=== PATIENT | female | born 1935 | race Caucasian/White ===

== ENCOUNTER 2019-08-21 08:40 | Emergency (ER) | payer OTHER, MEDICARE ==
--- NOTE | 2019-08-21 09:57 | RAD REPORT ---
EXAM DESCRIPTION: RAD - Lumbar Spine 3 Views - 08/21/2019 9:51 am CLINICAL HISTORY: PAIN Radiculopathy COMPARISON: Lumbar Spine 3 Views dated 02/25/2019 FINDINGS: Mild wedge compression fracture is seen affecting the L4 vertebral body with estimated jabari tebral body height loss of 10%. This appears subacute in timeframe. Degenerative changes are present elsewhere throughout the lumbar spine with vacuum disc degeneration noted at L2-3. Mild degenerative anterolisthesis is seen of L4 on 5. IMPRESSION: Subacute mild wedge compression fracture affecting L4 vertebral body noted.
--- NOTE | 2019-08-21 10:39 | ER ---
Nurse's Notes [facility] Name: Argenis Rosenthal Age: 84 yrs Sex: Female : 1935 Arrival Date: 08/21/2019 Time: 08:43 Bed 5 Private MD: Tip Hernandez V Diagnosis: Low back pain;Other fracture of fourth lumbar vertebra-wedge fracture, 10% Presentation: 08/20 08:54 Chief complaint: Left low back pain after mechanical fall from standing 10 days ago. Pt hb stated "I was in the kitchen and saw a mouse, I jumped backwards and hit the counter with my back.". Coronavirus screen: Proceed with normal triage. Ebola Screen: No symptoms or risks identified at this time. Initial Sepsis Screen: Does the patient meet any 2 criteria? No. Patient's initial sepsis screen is negative. Does the patient have a suspected source of infection? No. Patient's initial sepsis screen is negative. Risk Assessment: Do you want to hurt yourself or someone else? Patient reports no desire to harm self or others. Onset of symptoms was August 21, 2019. 08:54 Method Of Arrival: Ambulatory hb 08:54 Acuity: KHAI 4 hb Triage Assessment: 08:56 General: Appears in no apparent distress. comfortable, Behavior is calm, cooperative, bp appropriate for age. Pain: Complains of pain in left lower back. EENT: No deficits noted. Neuro: No deficits noted. Cardiovascular: No deficits noted. Respiratory: No deficits noted. GI: No signs and/or symptoms were reported involving the gastrointestinal system. : No signs and/or symptoms were reported regarding the genitourinary system. Derm: No deficits noted. Musculoskeletal: Circulation, motion, and sensation intact. Range of motion: intact in all extremities. Historical: - Allergies: 08:56 No Known Allergies; hb - Immunization history:: Adult Immunizations up to date, Adult Immunizations up to date. - Social history:: Smoking status: Patient denies any tobacco usage or history of. Smoking status: Patient denies any tobacco usage or history of. Screenin:56 Abuse screen: Denies threats or abuse. Denies injuries from another. Nutritional bp screening: No deficits noted. Tuberculosis screening: No symptoms or risk factors identified. Fall Risk None identified. Assessment: 08:55 General: SEE TRIAGE NOTE. Pain: Complains of pain in back. Neuro: Level of bp Consciousness is awake, alert, obeys commands, Oriented to person, place, time, situation. 10:16 Reassessment: RAD STUDIES COMPLETED AND REVIEWED. DISPO PENDING. bp 11:24 Reassessment: PT D/C HOME VIA W/C WITH FAMILY, DX WITH 4TH LUMBAR WEDGE FX. bp Vital Signs: 08:54 BP 139 / 101; Pulse 89; Resp 16; Temp 97.8; Pulse Ox 100% ; Weight 86.18 kg; Height 5 hb ft. (152.40 cm); Pain 4/10; 08:57 BP 149 / 103; Pulse 79; Resp 16; Pulse Ox 97% ; bp 10:15 BP 152 / 74; Pulse 68; Resp 16; Pulse Ox 96% ; bp 11:24 BP 166 / 67; Pulse 62; Resp 16; Pulse Ox 96% ; bp 08:54 Body Mass Index 37.11 (86.18 kg, 152.40 cm) hb ED Course: 08:43 Patient arrived in ED. ag5 08:43 Tip Hernandez MD is Private Physician. ag5 08:52 Jose Angel Montoya FNP-C is [facility]. la1 08:52 Marcell Cade MD is Attending Physician. la1 08:55 Aries Rojas, ANTONIA is Primary Nurse. bp 08:56 Triage completed. hb 08:56 Arm band placed on. hb 08:56 Patient has correct armband on for positive identification. Bed in low position. Call bp light in reach. Side rails up X2. 09:47 Lumbar Spine (3 Views) XRAY In Process Unspecified. EDMS 11:25 No provider procedures requiring assistance completed. Patient did not have IV access bp during this emergency room visit. Administered Medications: No medications were administered Outcome: 10:38 Discharge ordered by MD. la1 11:04 Discharge ordered by MD. la1 11:25 Discharged to home via wheelchair, with family. bp 11:25 Condition: stable 11:25 Discharge instructions given to patient, Instructed on discharge instructions, follow up and referral plans. medication usage, Demonstrated understanding of instructions, follow-up care, medications, Prescriptions given X 1. 11:26 Patient left the ED. bp Signatures: Dispatcher [employer] EDMS Jose Angel Montoya FNP-C CLIENT SOLUTIONS DIRECTOR-Cla1 Chelsea Dial, RN RN hb Aries Rojas, RN RN bp Ericka Shrestha ag5
--- NOTE | 2019-08-21 10:39 | EDPHYS ---
Physician Documentation [facility] Name: Argenis Rosenthal Age: 84 yrs Sex: Female : 1935 Arrival Date: 08/21/2019 Time: 08:43 Bed 5 Private MD: Tip Hernandez V ED Physician Marcell Cade HPI: 08/20 09:23 This 84 yrs old Female presents to ER via Ambulatory with complaints of Back la1 Pain. 09:23 The patient presents with pain that is acute. The symptoms are located in the low back. la1 Onset: The symptoms/episode began/occurred 10 day(s) ago. The pain does not radiate. Associated signs and symptoms: Pertinent negatives: constipation, dysuria, fever, headache, hematuria, incontinence, nausea, numbness, tingling, urinary retention. The problem was sustained was startled backwards in to edge of counter. No fall. Modifying factors: The patient symptoms are alleviated by rest, the patient symptoms are aggravated by any movement, bending. Severity of symptoms: At their worst the symptoms were mild. The patient has not experienced similar symptoms in the past. Historical: - Allergies: 08:56 No Known Allergies; hb - Immunization history:: Adult Immunizations up to date, Adult Immunizations up to date. - Social history:: Smoking status: Patient denies any tobacco usage or history of. Smoking status: Patient denies any tobacco usage or history of. ROS: 09:24 Constitutional: Negative for fever, chills, and weight loss, Eyes: Negative for injury, la1 pain, redness, and discharge, ENT: Negative for injury, pain, and discharge, Neck: Negative for injury, pain, and swelling, Cardiovascular: Negative for chest pain, palpitations, and edema, Respiratory: Negative for shortness of breath, cough, wheezing, and pleuritic chest pain, Abdomen/GI: Negative for abdominal pain, nausea, vomiting, diarrhea, and constipation. 09:24 Skin: Negative for injury, rash, and discoloration. 09:24 Back: Positive for pain with movement, Negative for decreased range of motion, radiated pain, acute changes. Exam: 09:24 Constitutional: This is a well developed, well nourished patient who is awake, alert, la1 and in no acute distress. Head/Face: Normocephalic, atraumatic. Chest/axilla: Normal chest wall appearance and motion. Nontender with no deformity. No lesions are appreciated. Cardiovascular: Regular rate and rhythm with a normal S1 and S2. No gallops, murmurs, or rubs. Normal PMI, no JVD. No pulse deficits. Respiratory: Lungs have equal breath sounds bilaterally, clear to auscultation Abdomen/GI: Soft, non-tender, with normal bowel sounds. No distension or tympany. MS/ Extremity: Pulses equal, no cyanosis. Neurovascular intact. Full, normal range of motion. 09:24 Back: ROM is painful, with all movement, CVA tenderness, is absent, vertebral tenderness, is not appreciated. 10:39 Neuro: Orientation: is normal, Memory: is normal, Cranial nerves: grossly normal, la1 Cerebellar function: is grossly normal, Sensation: is normal, no obvious gross deficits, no acute changes, Gait: is steady. Vital Signs: 08:54 BP 139 / 101; Pulse 89; Resp 16; Temp 97.8; Pulse Ox 100% ; Weight 86.18 kg; Height 5 hb ft. (152.40 cm); Pain 4/10; 08:57 BP 149 / 103; Pulse 79; Resp 16; Pulse Ox 97% ; bp 10:15 BP 152 / 74; Pulse 68; Resp 16; Pulse Ox 96% ; bp 11:24 BP 166 / 67; Pulse 62; Resp 16; Pulse Ox 96% ; bp 08:54 Body Mass Index 37.11 (86.18 kg, 152.40 cm) hb MDM: 09:14 Patient medically screened. la1 10:36 Data reviewed: vital signs, nurses notes, radiologic studies, I have discussed the la1 patient's presentation/case with the attending Emergency Department Physician; and as a result, I will discharge patient. Data interpreted: Pulse oximetry: on room air is 96 %. Interpretation: normal. Counseling: I had a detailed discussion with the patient and/or guardian regarding: the historical points, exam findings, and any diagnostic results supporting the discharge/admit diagnosis, radiology results, the need for outpatient follow up, a family practitioner, to return to the emergency department if symptoms worsen or persist or if there are any questions or concerns that arise at home. 10:59 Special discussion: Based on the patient's Hx, exam, and Dx evaluation, there is no la1 indication for emergent surgery or inpatient Tx. It is understood by the patient/guardian that if the Sx's persist or worsen they need to return immediately for re-evaluation. ED course: 10% wedge fracture of the fourth vertebrae, No weakness to extremities, no saddle anesthesia, no sensory loss, no bowel incontinence, pt reports some bladder incontinence that she has had in the past. Pt reports the incontinence happened when she took tramadol. Pt able to FU with PCP. discussed need for back brace, rest, pain meds as needed. . 08/20 09:14 Order name: Lumbar Spine (3 Views) XRAY; Complete Time: 10:00 la1 Administered Medications: No medications were administered Disposition: 11:32 Co-signature as Attending Physician, Marcell Cdae MD I agree with the assessment and kdr plan of care. Disposition: 08/21/19 11:04 Discharged to Home. Impression: Low back pain, Other fracture of fourth lumbar vertebra - wedge fracture, 10% . - Condition is Stable. - Discharge Instructions: Back Pain, Adult, Fall Prevention in the Home, Lumbar Fracture, Back Injury Prevention. - Prescriptions for Tylenol- Codeine #3 300-30 mg Oral Tablet - take 2 tablets by ORAL route every 6 hours As needed; 20 tablet. - Medication Reconciliation Form, Thank You Letter, Prescription Opioid Use form. - Follow up: Private Physician; When: 2 - 3 days; Reason: Recheck today's complaints, Re-evaluation by your physician. - Problem is new. - Symptoms have improved. - Notes: Please be very careful when you take the tylenol with codeine as it can greatly increase your risk of falling. Please return to the ER right away with any new or worsening symptoms including numbness, tingling, weakness, incontinence. Hope you feel better soon! Signatures: Dispatcher [employer] EDMS Marcell Cade MD MD kdr Attema, Lee, TRAVELING PLANT OPERATOR-C TRAVELING PLANT OPERATOR-Cla1 Chelsea Dial, ANTONIA RN Aries Mondragon, ANTONIA RN bp Corrections: (The following items were deleted from the chart) 10:46 10:38 08/21/2019 10:38 Discharged to Home. Impression: Low back pain; Wedge compression la1 fracture of fourth lumbar vertebra - Mild. Condition is Stable. Forms are Medication Reconciliation Form, Thank You Letter, Antibiotic Education, Prescription Opioid Use. Follow up: Private Physician; When: 2 - 3 days; Reason: Recheck today's complaints, Re-evaluation by your physician. Follow up: Emergency Department; When: As needed. Problem is new. Symptoms have improved. la1 11:00 10:55 Spine Lumbar Wo Con+CT.RAD.BRZ ordered. [facility] EDKY 11:26 11:04 08/21/2019 11:04 Discharged to Home. Impression: Low back pain; Other fracture of bp fourth lumbar vertebra - wedge fracture, 10% . Condition is Stable. Forms are Medication Reconciliation Form, Thank You Letter, Antibiotic Education, Prescription Opioid Use. Follow up: Private Physician; When: 2 - 3 days; Reason: Recheck today's complaints, Re-evaluation by your physician. Problem is new. Symptoms have improved. la1
[2019-08-21 11:46] VITALS: TEMP 97.8
[2019-08-21 11:52] VITALS: BP 166/67; O2SAT 96
== END 2019-08-21 11:26 | disposition home or self-care (01) ==
LOC: ER 08:40
DX: S32.040A Wedge compression fracture of fourth lumbar vertebra, initial encounter for closed fracture (principal)
CPT/HCPCS: 72100; 99283

== ENCOUNTER 2020-08-02 10:37 | Emergency (ER) | payer OTHER, MEDICARE ==
[2020-08-02] MEDS ORDERED: TETANUS & DIPHTHERIA TOX,ADULT 0.5 ML VIAL ONE (11:13)
--- NOTE | 2020-08-02 12:42 | EDPHYS ---
Physician Documentation [facility] Name: Argenis Rosenthal Age: 85 yrs Sex: Female : 1935 Arrival Date: 08/02/2020 Time: 10:37 Bed 14 Private MD: ED Physician Maikel Hare HPI: 08/02 10:48 This 85 yrs old Female presents to ER via Ambulatory with complaints of jmm Laceration To Leg. 10:48 Onset: The symptoms/episode began/occurred acutely, just prior to arrival. Associated jmm signs and symptoms: Pertinent negatives: dizziness, heavy bleeding, loss of consciousness, numbness distal to injury, suspected foreign body. The patient has experienced a previous episode. This is an 85 year old female with a history of htn, asthma, UC that presents to the ED with complaints of laceration to the right lower leg. This occurred while stepping into a ellison. Patient states she was cut by a trimmed ellison. Patient unsure of tetanus immunization. . Historical: - Allergies: 10:39 Beta-Blockers (Beta-Adrenergic Blocking Agts); aa5 - PMHx: 10:39 Hypertension; Asthma; Ulcerative Colitis; aa5 - Immunization history:: Last tetanus immunization: unknown. - Social history:: Smoking status: Patient denies any tobacco usage or history of. ROS: 10:48 Constitutional: Negative for fever, chills, and weight loss, Cardiovascular: Negative jmm for chest pain, palpitations, and edema, Respiratory: Negative for shortness of breath, cough, wheezing, and pleuritic chest pain. 10:48 MS/extremity: Positive for injury or acute deformity, laceration. 10:48 All other systems are negative. Exam: 10:48 Constitutional: This is a well developed, well nourished patient who is awake, alert, jmm and in no acute distress. Head/Face: atraumatic. Eyes: EOMI, no conjunctival erythema appreciated ENT: Moist Mucus Membranes Neck: Trachea midline, Supple Chest/axilla: Normal chest wall appearance and motion. Cardiovascular: Regular rate and rhythm. No edema appreciated Respiratory: Normal respirations, no respiratory distress appreciated Abdomen/GI: Non distended, soft Back: Normal ROM 10:48 Skin: 10 cm laceration noted to the right lower leg, no active bleeding. 10:48 Neuro: Orientation: is normal, Mentation: is normal, Memory: is normal. 10:48 Psych: Behavior/mood is pleasant, cooperative. Vital Signs: 10:39 BP 153 / 100; Pulse 89; Resp 16 S; Temp 98.4(O); Pulse Ox 97% on R/A; Weight 83.91 kg aa5 (R); Height 4 ft. 11 in. (149.86 cm) (R); Pain 3/10; 12:10 BP 164 / 76; Pulse 75; Resp 17; Pulse Ox 95% ; jl7 10:39 Body Mass Index 37.37 (83.91 kg, 149.86 cm) aa5 Laceration: 12:39 Wound Repair of 10cm ( 3.9in ) subcutaneous laceration to right leg. Distal jmm neuro/vascular/tendon intact. Anesthesia: Local anesthetic administered with 10 mls of 0.5% marcaine. Wound prep: Extensive cleansing with betadine by nm, Copious irrigation. Skin closed with 18 4-0 Prolene using simple sutures and sterile technique. Patient tolerated well. MDM: 10:48 Patient medically screened. [facility] 12:39 Data reviewed: vital signs, nurses notes. Counseling: I had a detailed discussion with elena the patient and/or guardian regarding: the historical points, exam findings, and any diagnostic results supporting the discharge/admit diagnosis, the need for outpatient follow up, to return to the emergency department if symptoms worsen or persist or if there are any questions or concerns that arise at home. ED course: Patient is alert and non toxic in appearance in the ED. Wound was copiously irrigated. Patient is advised to follow up with pcp and otherwise given strict return precautions. patient understood and agrees with the plan of care. . 08/02 11:11 Order name: Dressing - Wound; Complete Time: 12:02 7 08/02 11:11 Order name: Gloves, Sterile; Complete Time: 11:11 7 08/02 11:11 Order name: Setup Suture Tray; Complete Time: 11:11 Administered Medications: 11:10 Drug: Marcaine (bupivacaine) (0.5 %) 20 ml {Note: administered by ERP.} Volume: 10 ml; jl7 Route: Infiltration; 12:02 Drug: Tetanus-Diphtheria Toxoid Adult 0.5 ml {School Commissioner: [employer]. Exp: jl7 10/09/2021. Lot #: [id number]. } Route: IM; Site: right deltoid; Disposition: 18:48 Co-signature as Attending Physician, Maikel Hare MD. ma2 Disposition: 08/02/20 12:42 Discharged to Home. Impression: Cutaneous Laceration of the Lower Leg. - Condition is Stable. - Discharge Instructions: Laceration Care, Adult. - Prescriptions for Augmentin 875- 125 mg Oral Tablet - take 1 tablet by ORAL route every 12 hours for 10 days; 20 tablet. - Medication Reconciliation Form, Thank You Letter, Antibiotic Education, Prescription Opioid Use form. - Follow up: Private Physician; When: 7 - 10 days; Reason: Recheck today's complaints, Continuance of care, Staple/Suture removal, Re-evaluation by your physician. Signatures: Deejay Valdez PA PA jmm Calderon, Audri, RN RN aa5 Kathleen Torrez RN RN jl7 Maikel Hare MD MD ma2 Corrections: (The following items were deleted from the chart) 12:49 12:42 08/02/2020 12:42 Discharged to Home. Impression: Cutaneous Laceration of the jl7 Lower Leg. Condition is Stable. Forms are Medication Reconciliation Form, Thank You Letter, Antibiotic Education, Prescription Opioid Use. Follow up: Private Physician; When: 7 - 10 days; Reason: Recheck today's complaints, Continuance of care, Staple/Suture removal, Re-evaluation by your physician. elena
--- NOTE | 2020-08-02 12:42 | ER ---
Nurse's Notes [facility] Name: Argenis Rosenthal Age: 85 yrs Sex: Female : 1935 Arrival Date: 08/02/2020 Time: 10:37 Bed 14 Private MD: Diagnosis: Cutaneous Laceration of the Lower Leg Presentation: 08/02 10:39 Chief complaint: Patient states: "I was doing some yard work and the bottom of a ellison aa5 cut my leg". Laceration noted to right lower leg, mild bleeding noted at this time, dressing applied with gauze and tape. 10:39 Acuity: KHAI 3 aa5 10:39 Risk Assessment: Do you want to hurt yourself or someone else? Patient reports no aa5 desire to harm self or others. 10:39 Coronavirus screen: At this time, the client does not indicate any symptoms associated aa5 with coronavirus-19. Ebola Screen: Patient negative for fever greater than or equal to 101.5 degrees Fahrenheit, and additional compatible Ebola Virus Disease symptoms. Complicating Factors: There are no complicating factors for this patient. Initial Sepsis Screen: Does the patient meet any 2 criteria? No. Patient's initial sepsis screen is negative. Does the patient have a suspected source of infection? No. Patient's initial sepsis screen is negative. Onset of symptoms was August 02, 2020. 10:39 Method Of Arrival: Ambulatory aa5 Historical: - Allergies: 10:39 Beta-Blockers (Beta-Adrenergic Blocking Agts); aa5 - PMHx: 10:39 Hypertension; Asthma; Ulcerative Colitis; aa5 - Immunization history:: Last tetanus immunization: unknown. - Social history:: Smoking status: Patient denies any tobacco usage or history of. Screenin:00 Abuse screen: Denies threats or abuse. Denies injuries from another. Nutritional jl7 screening: No deficits noted. Tuberculosis screening: No symptoms or risk factors identified. Fall Risk None identified. Assessment: 11:00 General: Appears in no apparent distress. uncomfortable, Behavior is calm, cooperative, jl7 appropriate for age. Pain: Complains of pain in lateral aspect of right calf Pain currently is 3 out of 10 on a pain scale. Neuro: Level of Consciousness is awake, alert, obeys commands, Oriented to person, place, time, situation. Cardiovascular: Patient's skin is warm and dry. Respiratory: Airway is patent Respiratory effort is even, unlabored, Respiratory pattern is regular, symmetrical. Derm: Skin is pink, warm \\T\\ dry. Musculoskeletal: Range of motion: intact in all extremities. Injury Description: Laceration sustained to lateral aspect of right calf is jagged, 2.6 to 7.5 cm long, was sustained less than 30 minutes ago. is bleeding a small amount. Vital Signs: 10:39 BP 153 / 100; Pulse 89; Resp 16 S; Temp 98.4(O); Pulse Ox 97% on R/A; Weight 83.91 kg aa5 (R); Height 4 ft. 11 in. (149.86 cm) (R); Pain 3/10; 12:10 BP 164 / 76; Pulse 75; Resp 17; Pulse Ox 95% ; jl7 10:39 Body Mass Index 37.37 (83.91 kg, 149.86 cm) aa5 ED Course: 10:37 Patient arrived in ED. as 10:39 Arm band placed on. aa5 10:42 Deejay Valdez PA is PHCP. [facility] 10:42 Maikel Hare MD is Attending Physician. [facility] 10:52 Triage completed. aa 10:54 Kathleen Torrez RN is Primary Nurse. jl7 11:00 Patient has correct armband on for positive identification. Bed in low position. Call jl7 light in reach. Side rails up X 1. Pulse ox on. NIBP on. 11:28 Assist provider with laceration repair on lateral aspect of right calf that was between jl7 2.6 to 7.5 cm using sutures. Set up tray. Performed by Deejay PEDERSON Dressed with Neosporin, Nonstick gauze and foam tape Patient tolerated well. 12:49 Patient did not have IV access during this emergency room visit. jl7 Administered Medications: 11:10 Drug: Marcaine (bupivacaine) (0.5 %) 20 ml {Note: administered by ERP.} Volume: 10 ml; jl7 Route: Infiltration; 12:02 Drug: Tetanus-Diphtheria Toxoid Adult 0.5 ml {[employer] Assembly Line Worker: [employer]. Exp: jl7 10/09/2021. Lot #: [id number]. } Route: IM; Site: right deltoid; Outcome: 12:42 Discharge ordered by . elena 12:49 Discharged to home ambulatory. jl7 12:49 Condition: stable 12:49 Discharge instructions given to patient, Instructed on discharge instructions, follow up and referral plans. medication usage, Demonstrated understanding of instructions, follow-up care, medications, Prescriptions given X 1. 12:49 Patient left the ED. jl7 Signatures: Deejay Valdez PA PA jmm Martinez, Amelia as Calderon, Audri, RN RN aa5 Kathleen Torrez RN RN jl7
[2020-08-02 12:54] VITALS: TEMP 98.4
[2020-08-02 12:55] VITALS: BP 164/76; O2SAT 95
== END 2020-08-02 12:49 | disposition home or self-care (01) ==
LOC: ER 10:37
PROC: 0JQN0ZZ Repair Right Lower Leg Subcutaneous Tissue and Fascia, Open Approach (ICD-10-PCS; principal; 2020-08-02)
DX: S81.811A Laceration without foreign body, right lower leg, initial encounter (principal); W26.8XXA Contact with other sharp object(s), not elsewhere classified, initial encounter; Y93.01 Activity, walking, marching and hiking; Y92.89 Other specified places as the place of occurrence of the external cause; Z23 Encounter for immunization; Z88.8 Allergy status to other drugs, medicaments and biological substances; I10 Essential (primary) hypertension
CPT/HCPCS: 90471; 90714; 99284

== ENCOUNTER 2022-07-09 14:13 | Emergency (ER) | payer OTHER ==
--- NOTE | 2022-07-09 15:24 | RAD REPORT ---
EXAM DESCRIPTION: CT - Chest For Pe Angio - 07/09/2022 3:00 pm CLINICAL HISTORY: sob COMPARISON: None. TECHNIQUE: Dynamically enhanced axial 3 mm thick images of the chest were obtained during administra tion of 90 mL Isovue 370 IV contrast. Coronal and oblique reconstruction images were generated and re viewed. Exam utilizes a protocol for optimal evaluation of pulmonary arterial tree. Maximum intensity projections 3D imaging was utilized All CT scans are performed using dose optimization technique as appropriate and may include automated exposure control or mA/KV adjustment according to patient size. FINDINGS: A pulmonary embolus is not seen. A thoracic aortic aneurysm is not noted. A pleural effusion is not seen. A pericardial effusion is not seen. A lung consolidation is not present. Chronic elevation left hemidiaphragm. Left adrenal adenoma Heart is moderately to markedly enlarged. IMPRESSION: Negative for a pulmonary embolism.
--- NOTE | 2022-07-09 16:02 | RAD REPORT ---
EXAM DESCRIPTION: USExtrem Venous W Compress Bil07/09/2022 3:21 pm CLINICAL HISTORY: Leg pain COMPARISON: 2014 FINDINGS: The common femoral, superficial femoral, greater saphenous, popliteal and posterior tibial veins bilaterally are compressible and demonstrate augmentation. Doppler demonstrates good flow. Grayscale, color and spectral analysis performed on all vessels IMPRESSION: No evidence of deep venous thrombosis involving either lower extremity.
--- NOTE | 2022-07-09 16:10 | EDPHYS ---
Physician Documentation [facility] Name: Argenis Rosenthal Age: 87 yrs Sex: Female : 1935 Arrival Date: 07/09/2022 Time: 14:15 Bed DIS5 Private MD: ED Physician Fabiano Banks HPI: 07/09 15:37 This 87 yrs old Female presents to ER via Unassigned with complaints of Abnormal Lab rt Results. 15:37 Patient presents to the ED from a primary care provider for an elevated D-dimer over rt 1000. The patient was reportedly short of breath. Patient is no history of CHF, diuretics were given at the PCPs office. Patient reports mild shortness of breath at this time, denies lower extremity swelling to me. Denies chest pain. Symptoms are moderate severity, no other aggravating or elevating factors.. Historical: - Allergies: 16:50 Beta-Blockers (Beta-Adrenergic Blocking Agts); iw - PMHx: 16:50 Asthma; Hypertension; ulcerative colitis; iw - Family history:: not pertinent. ROS: 15:37 Constitutional: Negative for fever, chills, and weight loss, Eyes: Negative for injury, rt pain, redness, and discharge, Cardiovascular: Negative for chest pain, palpitations, and edema, Abdomen/GI: Negative for abdominal pain, nausea, vomiting, diarrhea, and constipation, MS/Extremity: Negative for injury and deformity, Skin: Negative for injury, rash, and discoloration, Neuro: Negative for headache, weakness, numbness, tingling, and seizure, Psych: Negative for depression, anxiety, suicide ideation, homicidal ideation, and hallucinations. 15:37 Respiratory: Positive for shortness of breath, Negative for cough. Exam: 15:37 Constitutional: This is a well developed, well nourished patient who is awake, alert, rt and in no acute distress. Head/Face: Normocephalic, atraumatic. Chest/axilla: Normal chest wall appearance and motion. Nontender with no deformity. No lesions are appreciated. Cardiovascular: Regular rate and rhythm with a normal S1 and S2. No gallops, murmurs, or rubs. Normal PMI, no JVD. No pulse deficits. Respiratory: Lungs have equal breath sounds bilaterally, clear to auscultation and percussion. No rales, rhonchi or wheezes noted. No increased work of breathing, no retractions or nasal flaring. Abdomen/GI: Soft, non-tender, with normal bowel sounds. No distension or tympany. No guarding or rebound. No evidence of tenderness throughout. Skin: Warm, dry with normal turgor. Normal color with no rashes, no lesions, and no evidence of cellulitis. MS/ Extremity: Pulses equal, no cyanosis. Neurovascular intact. Full, normal range of motion. Neuro: Awake and alert, GCS 15, oriented to person, place, time, and situation. Cranial nerves II-XII grossly intact. Motor strength 5/5 in all extremities. Sensory grossly intact. Cerebellar exam normal. Normal gait. Psych: Awake, alert, with orientation to person, place and time. Behavior, mood, and affect are within normal limits. MDM: 14:26 Patient medically screened. rt 16:10 Differential diagnosis: DVT, CHF, pulmonary embolism. Data reviewed: vital signs, rt nurses notes, lab test result(s), radiologic studies. Management of patient was discussed with the following: Primary Care Provider: Discussed with patient's PCP plan of action, plan to send patient home, PCP already prescribed diuretics. Patient with positive D-dimer, negative troponin in the outpatient setting. Does not require further work-up in the ED. Test considered but Not performed: Labs: Patient had labs performed in the outpatient setting, repeat laboratory testing is not needed.. External Records Reviewed: Outpatient labs: Reviewed outpatient labs revealing elevated D-dimer, BNP, otherwise unremarkable.. Care significantly affected by the following chronic conditions: Congestive Heart Failure. Counseling: I had a detailed discussion with the patient and/or guardian regarding: the historical points, exam findings, and any diagnostic results supporting the discharge/admit diagnosis, radiology results, the need for outpatient follow up, to return to the emergency department if symptoms worsen or persist or if there are any questions or concerns that arise at home. 07/09 14:26 Order name: CT Chest For PE Angio rt 07/09 14:26 Order name: US Extremity Venous W Compression Juanpablo rt 07/09 15:24 Order name: CT; Complete Time: 15:32 EDMS 07/09 16:02 Order name: US; Complete Time: 16:07 EDMS Administered Medications: No medications were administered Disposition Summary: 07/09/22 16:10 Discharge Ordered Location: Home rt Problem: new rt Symptoms: have improved rt Condition: Stable rt Diagnosis - Dyspnea rt Followup: rt - With: Tip Hernandez MD - When: 2 - 3 days - Reason: Discharge Instructions: - Discharge Summary Sheet rt - Shortness of Breath, Adult rt Forms: - Medication Reconciliation Form rt - Thank You Letter rt - Antibiotic Education rt - Prescription Opioid Use rt Signatures: Dispatcher [employer] Jessica Perea, ANTONIA RN iw Fabiano Banks MD MD rt
--- NOTE | 2022-07-09 16:55 | ER ---
Nurse's Notes [facility] Name: Argenis Rosenthal Age: 87 yrs Sex: Female : 1935 Arrival Date: 07/09/2022 Time: 14:15 Bed DIS5 Private MD: Diagnosis: Dyspnea Presentation: 07/09 16:49 Chief complaint: Spouse and/or significant other states: came in for elevated ddimer iw and SOB. Coronavirus screen: Client presents with at least one sign or symptom that may indicate coronavirus-19. Ebola Screen: Patient negative for fever greater than or equal to 101.5 degrees Fahrenheit, and additional compatible Ebola Virus Disease symptoms Patient denies exposure to infectious person. Patient denies travel to an Ebola-affected area in the 21 days before illness onset. No symptoms or risks identified at this time. Initial Sepsis Screen: Does the patient meet any 2 criteria? No. Patient's initial sepsis screen is negative. Does the patient have a suspected source of infection? No. Patient's initial sepsis screen is negative. Risk Assessment: Do you want to hurt yourself or someone else? Patient reports no desire to harm self or others. Onset of symptoms was July 09, 2022. 16:49 Method Of Arrival: Ambulatory iw 16:49 Acuity: KHAI 3 iw Historical: - Allergies: 16:50 Beta-Blockers (Beta-Adrenergic Blocking Agts); iw - PMHx: 16:50 Asthma; Hypertension; ulcerative colitis; iw - Family history:: not pertinent. ED Course: 14:15 Patient arrived in ED. rg4 14:17 Fabiano Banks MD is Attending Physician. rt 16:09 Tip Hernandez MD is Referral Physician. rt 16:50 Triage completed. iw 16:54 Jessica Norris RN is Primary Nurse. iw Administered Medications: No medications were administered Outcome: 16:10 Discharge ordered by . rt 16:54 Patient left the ED. iw Signatures: Jessica Norris RN RN iw Asya Buenrostro rg4 Fabiano Banks MD MD rt
== END 2022-07-09 16:54 | disposition home or self-care (01) ==
LOC: ER 14:13
DX: R06.00 Dyspnea, unspecified (principal); I10 Essential (primary) hypertension; J45.909 Unspecified asthma, uncomplicated; Z88.8 Allergy status to other drugs, medicaments and biological substances
CPT/HCPCS: 71275; 93970; 99281; Q9967

== ENCOUNTER 2023-08-01 09:30 | Emergency (ER) | payer OTHER ==
[2023-08-01] MEDS ORDERED: TDAP (DIPHTH,PERTUSS(ACELL),TET VAC) 0.5 ML VIAL IMVAC ONE (09:43)
[2023-08-01] MEDS ORDERED: ONDANSETRON 4 MG (ODT) TAB ONE (10:00)
--- NOTE | 2023-08-01 10:14 | RAD REPORT ---
EXAM DESCRIPTION: CT - [id number] - 08/01/2023 10:06 am CLINICAL HISTORY: Trauma, head and neck injury. PAIN COMPARISON: <Comparisons> TECHNIQUE: Axial 5 mm thick images of the head were obtained. Axial 2 mm thick images of the cervical spine were obtained with sagittal and coronal reconstruction images generated and reviewed. All CT scans are performed using dose optimization technique as appropriate and may include automated exposure control or mA/KV adjustment according to patient size. FINDINGS: CT HEAD WITHOUT CONTRAST: No acute hemorrhage, hydrocephalus or extra-axial collection is identified.Mild generalized brain atr ophy is present with mild periventricular and deep white matter chronic microvascular ischemic change s.No areas of brain edema or midline shift. The paranasal sinuses and mastoids are clear.The calvarium is intact. Moderate right posterior scalp hematoma. CT CERVICAL SPINE WITHOUT CONTRAST: No fracture or subluxation.Moderate lower cervical degenerative changes.No prevertebral soft tissues swelling is identified. IMPRESSION: No acute intracranial or cervical spine findings. Moderate lower cervical degenerative changes.
--- NOTE | 2023-08-01 10:19 | ER ---
Nurse's Notes [facility] Name: Argenis Rosenthal Age: 88 yrs Sex: Female : 1935 Arrival Date: 08/01/2023 Time: 09:30 Bed 19 Private MD: Diagnosis: Fall on same level, unspecified;Laceration without foreign body of unspecified part of head-hematoma Presentation: 07/31 09:32 Chief complaint: EMS states: "Was going up a step, lost her balance and fell backwards rs5 and hit the back of her head. No LOC, is not on blood thinners and is complaining of nausea". Coronavirus screen: At this time, the client does not indicate any symptoms associated with coronavirus-19. Ebola Screen: No symptoms or risks identified at this time. Initial Sepsis Screen: Does the patient meet any 2 criteria? No. Patient's initial sepsis screen is negative. Does the patient have a suspected source of infection? No. Patient's initial sepsis screen is negative. Risk Assessment: Do you want to hurt yourself or someone else? Patient reports no desire to harm self or others. Onset of symptoms was July 28, 2023. 09:32 Method Of Arrival: EMS: [facility] rs5 09:32 Acuity: KHAI 3 rs5 Triage Assessment: 09:37 General: Appears in no apparent distress. comfortable, Behavior is calm, cooperative. rs5 Pain: Denies pain. Historical: - Allergies: 09:37 Beta-Blockers (Beta-Adrenergic Blocking Agts); rs5 - PMHx: 09:37 Hypertension; Asthma; ulcerative colitis; rs5 - PSHx: 09:37 None; rs5 - Immunization history:: Adult Immunizations up to date. - Social history:: Smoking status: Patient denies any tobacco usage or history of. - Family history:: not pertinent. Screenin:35 [facility] ED Fall Risk Assessment (Adult) History of falling in the last 3 months, rs5 including since admission No falls in past 3 months (0 pts) Confusion or Disorientation No (0 pts) Intoxicated or Sedated No (0 pts) Impaired Gait No (0 pts) Mobility Assist Device Used No (0 pt) Altered Elimination No (0 pt) Score/Fall Risk Level 0 - 2 = Low Risk Oriented to surroundings, Maintained a safe environment. 09:35 Abuse screen: Denies threats or abuse. Nutritional screening: No deficits noted. rs5 Tuberculosis screening: No symptoms or risk factors identified. Assessment: 09:35 General: Appears in no apparent distress. comfortable, Behavior is calm, cooperative. rs5 Pain: Denies pain. Neuro: Level of Consciousness is awake, alert, obeys commands, Oriented to person, place, time, situation, Tractor Operator Helper are equal bilaterally Speech is normal, Facial symmetry appears normal, Pupils are PERRLA, Intact. 09:35 Cardiovascular: Rhythm is regular. Respiratory: Airway is patent Respiratory effort is rs5 even, unlabored, Respiratory pattern is regular, symmetrical. GI: Abdomen is round non-distended, Abd is soft and non tender X 4 quads. : No signs and/or symptoms were reported regarding the genitourinary system. EENT: No signs and/or symptoms were reported regarding the EENT system. Derm: Skin is intact, Skin is pink, warm \\T\\ dry. Musculoskeletal: Range of motion: intact in all extremities. 10:50 Reassessment: Patient and/or family updated on plan of care and expected duration. Pain rs5 level reassessed. Patient is alert, oriented x 3, equal unlabored respirations, skin warm/dry/pink. Patient denies pain at this time. Patient states feeling better. Vital Signs: 09:32 BP 143 / 93; Pulse 70; Resp 18; Pulse Ox 99% on R/A; rs5 09:32 Temp 97.8(O); rs5 09:50 BP 140 / 91; Pulse 74; Resp 18; Pulse Ox 99% on R/A; rs5 10:40 BP 137 / 88; Pulse 71; Resp 17; Pulse Ox 99% on R/A; rs5 [place] Coma Score: 10:17 Eye Response: spontaneous(4). Motor Response: obeys commands(6). Verbal Response: fatuma oriented(5). Total: 15. ED Course: 09:32 Patient arrived in ED. rs5 09:35 Triage completed. rs5 09:35 Arm band placed on right wrist. rs5 09:35 Patient has correct armband on for positive identification. Placed in gown. Bed in low rs5 position. Call light in reach. Side rails up X2. 09:35 No provider procedures requiring assistance completed. rs5 09:37 Larry Nair MD is Attending Physician. [facility] 10:08 CT Head C Spine In Process Unspecified. EDCT 10:15 Laz Crawley, RN is Primary Nurse. rs5 10:55 Patient did not have IV access during this emergency room visit. rs5 Administered Medications: 10:03 Not Given (Patient Objection): tetanus toxoid,adsorbed0.5 ml IM once; Provide Vaccine rs5 Information Statement (VIS). 10:15 Drug: Ondansetron Oral Disintegrating Tablet Oral Disintegrating Tablet 4 mg PO once rs5 Route: PO; 10:16 Follow up: Response: No adverse reaction rs5 Medication: 09:40 VIS not applicable for this client. rs5 Outcome: 10:19 Discharge ordered by . [facility] 10:55 Discharged to home ambulatory, rs5 10:55 Condition: stable rs5 10:55 Discharge instructions given to patient, Instructed on discharge instructions, follow up and referral plans. Demonstrated understanding of instructions, follow-up care, 10:56 Patient left the ED. rs5 Signatures: Dispatcher [employer] EDCT Larry Nair MD MD cha Sotelo, Ricky, RN RN rs5 Corrections: (The following items were deleted from the chart) 12:37 12:37 Response: No adverse reaction rs5 rs5
--- NOTE | 2023-08-01 10:20 | EDPHYS ---
Physician Documentation [facility] Name: Argenis Rosenthal Age: 88 yrs Sex: Female : 1935 Arrival Date: 08/01/2023 Time: 09:30 Bed 19 Private MD: ED Physician Larry Nair HPI: 07/31 10:13 This 88 yrs old Female presents to ER via EMS with complaints of fall, hit fatuma back of head, laceration. 10:13 The patient or guardian reports injury, a laceration, swelling, tenderness. The fatuma complaints affect the left occipital area and right occipital area. Context of injury: The problem was sustained at a parking lot, resulted from a direct blow. Onset: The symptoms/episode began/occurred just prior to arrival. Associated signs and symptoms: Loss of consciousness: This patient did not experience any loss of consciousness. Pertinent positives: nausea. The patient complains of pain to the left occipital area and right occipital area. The patient describes the headache as aching. Severity of symptoms: At its worst the pain was moderate, in the emergency department the pain is unchanged. Historical: - Allergies: 09:37 Beta-Blockers (Beta-Adrenergic Blocking Agts); rs5 - PMHx: 09:37 Hypertension; Asthma; ulcerative colitis; rs5 - PSHx: 09:37 None; rs5 - Immunization history:: Adult Immunizations up to date. - Social history:: Smoking status: Patient denies any tobacco usage or history of. - Family history:: not pertinent. ROS: 10:13 Constitutional: Negative for fever, chills, and weight loss, Eyes: Negative for injury, fatuma pain, redness, and discharge, ENT: Negative for injury, pain, and discharge, Neck: Negative for injury, pain, and swelling, Cardiovascular: Negative for chest pain, palpitations, and edema, Respiratory: Negative for shortness of breath, cough, wheezing, and pleuritic chest pain, Back: Negative for injury and pain, : Negative for injury, bleeding, discharge, and swelling, MS/Extremity: Negative for injury and deformity, Neuro: Negative for headache, weakness, numbness, tingling, and seizure, Psych: Negative for depression, anxiety, suicide ideation, homicidal ideation, and hallucinations, Allergy/Immunology: Negative for hives, rash, and allergies, Endocrine: Negative for neck swelling, polydipsia, polyuria, polyphagia, and marked weight changes, Hematologic/Lymphatic: Negative for swollen nodes, abnormal bleeding, and unusual bruising, 10:13 Abdomen/GI: Positive for nausea, Exam: 10:13 Constitutional: This is a well developed, well nourished patient who is awake, alert, fatuma and in no acute distress. Eyes: Pupils equal round and reactive to light, extra-ocular motions intact. Lids and lashes normal. Conjunctiva and sclera are non-icteric and not injected. Cornea within normal limits. Periorbital areas with no swelling, redness, or edema. ENT: Nares patent. No nasal discharge, no septal abnormalities noted. Tympanic membranes are normal and external auditory canals are clear. Oropharynx with no redness, swelling, or masses, exudates, or evidence of obstruction, uvula midline. Mucous membranes moist. Neck: Trachea midline, no thyromegaly or masses palpated, and no cervical lymphadenopathy. Supple, full range of motion without nuchal rigidity, or vertebral point tenderness. No Meningismus. Chest/axilla: Normal chest wall appearance and motion. Nontender with no deformity. No lesions are appreciated. Cardiovascular: Regular rate and rhythm with a normal S1 and S2. No gallops, murmurs, or rubs. Normal PMI, no JVD. No pulse deficits. Respiratory: Lungs have equal breath sounds bilaterally, clear to auscultation and percussion. No rales, rhonchi or wheezes noted. No increased work of breathing, no retractions or nasal flaring. Abdomen/GI: Soft, non-tender, with normal bowel sounds. No distension or tympany. No guarding or rebound. No evidence of tenderness throughout. Back: No spinal tenderness. No costovertebral tenderness. Full range of motion. Female : Normal external genitalia. Skin: Warm, dry with normal turgor. Normal color with no rashes, no lesions, and no evidence of cellulitis. MS/ Extremity: Pulses equal, no cyanosis. Neurovascular intact. Full, normal range of motion. Neuro: Awake and alert, GCS 15, oriented to person, place, time, and situation. Cranial nerves II-XII grossly intact. Motor strength 5/5 in all extremities. Sensory grossly intact. Cerebellar exam normal. Normal gait. Psych: Awake, alert, with orientation to person, place and time. Behavior, mood, and affect are within normal limits. 10:13 Head/face: Noted is contusion, hematoma, a laceration(s), swelling, that is mild, of the left occipital area and right occipital area, Vital Signs: 09:32 BP 143 / 93; Pulse 70; Resp 18; Pulse Ox 99% on R/A; rs5 09:32 Temp 97.8(O); rs5 09:50 BP 140 / 91; Pulse 74; Resp 18; Pulse Ox 99% on R/A; rs5 10:40 BP 137 / 88; Pulse 71; Resp 17; Pulse Ox 99% on R/A; rs5 [place] Coma Score: 10:17 Eye Response: spontaneous(4). Motor Response: obeys commands(6). Verbal Response: fatuma oriented(5). Total: 15. MDM: 09:37 Patient medically screened. fatuma 10:17 Differential diagnosis: Contusion of Hematoma on Laceration of Intracranial bleed- fatuma Concussion without LOC. cerebral contusion. Data reviewed: vital signs, nurses notes, radiologic studies. I considered the following discharge prescriptions or medication management in the emergency department Medications were administered in the Emergency Department. See MAR. Test considered but Not performed: EKG: no ekg. Care significantly affected by the following chronic conditions: Hypertension, Obesity. 07/31 09:40 Order name: CT Head C Spine [facility] 07/31 09:40 Order name: Dressing - Wound; Complete Time: 10:03 [facility] 07/31 09:40 Order name: Gloves, Sterile; Complete Time: 10:03 [facility] 07/31 09:40 Order name: Setup Suture Tray; Complete Time: 10:03 [facility] 07/31 09:40 Order name: Ice pack; Complete Time: 10:03 [facility] Administered Medications: 10:03 Not Given (Patient Objection): tetanus toxoid,adsorbed0.5 ml IM once; Provide Vaccine rs5 Information Statement (VIS). 10:15 Drug: Ondansetron Oral Disintegrating Tablet Oral Disintegrating Tablet 4 mg PO once rs5 Route: PO; 10:16 Follow up: Response: No adverse reaction rs5 Disposition Summary: 08/01/23 10:19 Discharge Ordered Notes: Location: Home fatuma Problem: new fatuma Symptoms: have improved fatuma Condition: Stable fatuma Diagnosis - Fall on same level, unspecified fatuma - Laceration without foreign body of unspecified part of head - hematoma fatuma Followup: [facility] - With: Private Physician - When: 2 - 3 days - Reason: Recheck today's complaints, Continuance of care, Re-evaluation by your physician Discharge Instructions: - Discharge Summary Sheet fatuma - Head Injury, Adult fatuma - Fall Prevention in the Home, Adult fatuma - Fall Prevention in the Home, Adult, [id number] fatuma - Head Injury, Adult, [id number] fatuma - Sutures, Yves, or Adhesive Wound Closure, [id number] [facility] Forms: - Medication Reconciliation Form [facility] - Thank You Letter [facility] - Antibiotic Education fatuma - Prescription Opioid Use fatuma - Patient Portal Instructions [facility] - Leadership Thank You Letter [facility] Prescriptions: - ondansetron 4 mg Oral Tablet,disintegrating - take 1 tablet ORAL route 2 times per day for 5 days; 20 tablet; Refills: 0, fatuma Product Selection Permitted Signatures: Dispatcher [employer] Larry Mitchell MD MD cha Sotelo, Ricky RN RN rs5
[2023-08-01 11:04] VITALS: BP 143/93; TEMP 97.8; O2SAT 99
== END 2023-08-01 10:56 | disposition home or self-care (01) ==
LOC: ER 09:30
DX: S01.81XA Laceration without foreign body of other part of head, initial encounter (principal); W18.30XA Fall on same level, unspecified, initial encounter; I10 Essential (primary) hypertension; Z88.8 Allergy status to other drugs, medicaments and biological substances
CPT/HCPCS: 70450; 72125; 99283; Q0162